=== PATIENT | female | born 1945 | race African-American/Black ===

== ENCOUNTER 2017-03-31 08:58 | Emergency (ER) | payer MEDICARE, OTHER ==
[~2017-03-31] VITALS: Ht 165.1 cm; Wt 81.2 kg
[2017-03-31 09:09] VITALS: BP 161/89
[2017-03-31] MEDS ORDERED: TETANUS-DIPTH-ACEL PERTUSSIS 0.5ML SYRG IM ONE (11:15)
== END 2017-03-31 11:32 | disposition home or self-care (01) ==
LOC: ER 09:08
DX: S61.213A Laceration without foreign body of left middle finger without damage to nail, initial encounter (principal); S61.215A Laceration without foreign body of left ring finger without damage to nail, initial encounter; Z88.0 Allergy status to penicillin; W22.09XA Striking against other stationary object, initial encounter; Y93.89 Activity, other specified; Y99.8 Other external cause status; Y92.89 Other specified places as the place of occurrence of the external cause
CPT/HCPCS: 12002; 90471; 90715

== ENCOUNTER 2021-09-29 13:12 | Inpatient (IN) | payer OTHER ==
[~2021-09-29] VITALS: Ht 167.6 cm; Wt 69.6 kg
[2021-09-29] MEDS ORDERED: SODIUM CHLORIDE 0.9% 1,000 ML IV ONE (14:30)
[2021-09-29 15:09] LABS: Basophils # (auto) 0.1 10 ^3/uL (0-0.2); Basophils % (auto) 1.2 % (0.0-2.0); Eosinophils # (auto) 0.2 10 ^3/uL (0-0.8); Eosinophils % (auto) 3.1 % (0.0-7.0); Hematocrit 36.8 % (36.0-46.0); Hemoglobin 12.2 g/dL (12.2-16.2); Lymphocytes # (auto) 0.8 10 ^3/uL (0.4-5.4); Lymphocytes % (auto) 15.6 % (10.0-50.0); Mean Corpuscular Hemoglobin 29.1 pg (28.0-32.0); Mean Corpuscular Hgb Conc. 33.2 g/dL (32.0-36.0); Mean Corpuscular Volume 87.5 fL (80.0-100.0); Monocytes # (auto) 0.5 10 ^3/uL (0-1.3); Monocytes % (auto) 10.9 % (0.0-12.0); Neutrophils # (auto) 3.4 10 ^3/uL (1.6-8.6); Neutrophils % (auto) 69.2 % (37.0-80.0); Nucleated Red Blood Cells % 0.1 %; Red Cell Distribution Width 13.7 % (11.8-14.3)
[2021-09-29 15:23] LABS: BUN/Creatinine Ratio 12.2; Calcium 8.5 mg/dL (8.5-10.1); Potassium 3.8 mmol/L (3.5-5.1)
[2021-09-29 15:27] LABS: Bilirubin, Total 0.5 mg/dL (0.2-1.0); Total Protein 6.4 g/dL (6.4-8.2)
[2021-09-29 16:48] LABS: Urine Bacteria FEW /hpf (None Seen); Urine Blood Negative /uL (Negative); Urine Specific Gravity 1.004 (1.001-1.035); Urine WBC 5 /hpf (0 - 5)
[2021-09-29] MEDS ORDERED: ONDANSETRON HCL 4 MG/2 ML VIAL IV ONE (18:00)
[2021-09-29] MEDS ORDERED: TEMAZEPAM 15 MG CAP PO PRN (21:15)
[2021-09-29] MEDS ORDERED: ONDANSETRON HCL 4 MG/2 ML VIAL IV PRN (21:15)
[2021-09-29] MEDS ORDERED: DEXTROSE (50%) 50ML SYRG IV PRN (21:15)
[2021-09-29] MEDS ORDERED: AZITHROMYCIN 500MG/ 250ML 250 ML IV ONE (21:15)
[2021-09-29] MEDS: SODIUM CHLORIDE 0.9% 1,000 ML IV SCH (21:39)
[2021-09-29] MEDS: ATORVASTATIN 20 MG TAB PO SCH (23:05)
[2021-09-29] MEDS: ASCORBIC ACID 500 MG TAB PO SCH (23:05)
[2021-09-30 00:09] VITALS: BP 149/81
[2021-09-30 05:00] VITALS: BP 130/82
[2021-09-30] MEDS: InsuLIN REG 1unit/0.01ml Soln (100units/ml) SC SCH ×5 (05:53→23:09)
[2021-09-30] MEDS: ACCU-CHEK COMFORT CURVE STRIP VI SCH ×4 (05:53→18:41)
[2021-09-30] MEDS ORDERED: METF-370 PO (06:04)
[2021-09-30] MEDS ORDERED: GLIP10TA9 PO (06:04)
[2021-09-30] MEDS ORDERED: GLUC1TES36 XX (06:04)
[2021-09-30] MEDS ORDERED: OXYB5TAB61 PO (06:04)
[2021-09-30] MEDS ORDERED: ATOR-47 PO (06:04)
[2021-09-30] MEDS ORDERED: ASPI81CH59 PO (06:04)
[2021-09-30] MEDS ORDERED: FLUT50SP NAS (06:04)
[2021-09-30] MEDS ORDERED: LISI-716 PO (06:04)
[2021-09-30] MEDS ORDERED: IBUP800T26 PO (06:04)
[2021-09-30] MEDS ORDERED: VALA1TAB34 PO (06:04)
[2021-09-30 06:37] LABS: Basophils # (auto) 0.1 10 ^3/uL (0-0.2); Basophils % (auto) 1.1 % (0.0-2.0); Eosinophils # (auto) 0.1 10 ^3/uL (0-0.8); Eosinophils % (auto) 3.1 % (0.0-7.0); Hematocrit 34.4 % (36.0-46.0); Hemoglobin 11.5 g/dL (12.2-16.2); Lymphocytes # (auto) 0.6 10 ^3/uL (0.4-5.4); Lymphocytes % (auto) 14.2 % (10.0-50.0); Mean Corpuscular Hemoglobin 29.1 pg (28.0-32.0); Mean Corpuscular Hgb Conc. 33.5 g/dL (32.0-36.0); Mean Corpuscular Volume 86.8 fL (80.0-100.0); Monocytes # (auto) 0.5 10 ^3/uL (0-1.3); Monocytes % (auto) 11.8 % (0.0-12.0); Neutrophils # (auto) 3.2 10 ^3/uL (1.6-8.6); Neutrophils % (auto) 69.8 % (37.0-80.0); Nucleated Red Blood Cells % 0.2 %; Red Blood Cells 3.96 10^6/uL (4.0-5.20); Red Cell Distribution Width 13.5 % (11.8-14.3); White Blood Cell 4.6 10^3/uL (4.4-10.8)
[2021-09-30 06:57] LABS: BUN/Creatinine Ratio 9.6; Calcium 8.1 mg/dL (8.5-10.1); Potassium 3.3 mmol/L (3.5-5.1)
[2021-09-30 07:00] LABS: Bilirubin, Total 0.7 mg/dL (0.2-1.0); Total Protein 5.4 g/dL (6.4-8.2)
[2021-09-30 08:45] VITALS: BP 156/89
[2021-09-30] MEDS ORDERED: ENOXAPARIN SOD 40 MG/0.4 ML SYRINGE SC SCH (10:00)
[2021-09-30] MEDS ORDERED: PANTOPRAZOLE 40 MG/10 ML VIAL INJ IV SCH (10:00)
[2021-09-30] MEDS ORDERED: AZITHROMYCIN 500MG/ 250ML 250 ML IV SCH (10:00)
[2021-09-30] MEDS ORDERED: ZINC SULFATE 220mg CAP or TAB PO SCH (10:00)
[2021-09-30] MEDS: SODIUM CHLORIDE 0.9% 1,000 ML IV SCH ×3 (10:35→23:00)
[2021-09-30] MEDS: ASCORBIC ACID 500 MG TAB PO SCH (11:15)
[2021-09-30] MEDS: ASPirin 81 mg TAB PO SCH (11:15)
[2021-09-30] MEDS: LISINOPRIL 10 MG TAB PO SCH (11:16)
[2021-09-30] MEDS ORDERED: cefTRIAXone 1GM/50ML D5W 50 ML IV ONE (11:30)
[2021-09-30] MEDS ORDERED: IOHEXOL 300 MG/ML 100ML BOTTLE IJ ONE (16:52)
[2021-09-30 17:00] VITALS: BP 144/79
[2021-09-30] MEDS: ALBUTEROL SULF 2.5 MG/0.5ML(0.5%) NEB SOLN NEB SCH (18:00)
[2021-09-30 19:00] VITALS: BP 144/79
[2021-09-30 22:25] VITALS: BP 127/67
[2021-09-30] MEDS: ATORVASTATIN 20 MG TAB PO SCH (22:43)
[2021-10-01] MEDS: ACCU-CHEK COMFORT CURVE STRIP VI SCH ×4 (05:01→18:48)
[2021-10-01] MEDS: InsuLIN REG 1unit/0.01ml Soln (100units/ml) SC SCH ×3 (05:01→18:49)
[2021-10-01 05:25] VITALS: BP 128/71
[2021-10-01 07:07] LABS: RPR Non Reactive (Non Reactive)
[2021-10-01 08:30] VITALS: BP 126/79
[2021-10-01] MEDS: ALBUTEROL SULF 2.5 MG/0.5ML(0.5%) NEB SOLN NEB SCH ×3 (08:51→18:27)
[2021-10-01] MEDS ORDERED: cefTRIAXone 1GM/50ML D5W 50 ML IV SCH (09:00)
[2021-10-01 09:25] LABS: Basophils # (auto) 0.1 10 ^3/uL (0-0.2); Basophils % (auto) 2.3 % (0.0-2.0); Eosinophils # (auto) 0.2 10 ^3/uL (0-0.8); Eosinophils % (auto) 3.7 % (0.0-7.0); Hematocrit 34.7 % (36.0-46.0); Hemoglobin 11.4 g/dL (12.2-16.2); Lymphocytes # (auto) 0.7 10 ^3/uL (0.4-5.4); Lymphocytes % (auto) 13.6 % (10.0-50.0); Mean Corpuscular Hemoglobin 28.8 pg (28.0-32.0); Mean Corpuscular Hgb Conc. 32.8 g/dL (32.0-36.0); Mean Corpuscular Volume 87.7 fL (80.0-100.0); Monocytes # (auto) 0.6 10 ^3/uL (0-1.3); Monocytes % (auto) 11.1 % (0.0-12.0); Neutrophils # (auto) 3.5 10 ^3/uL (1.6-8.6); Neutrophils % (auto) 69.3 % (37.0-80.0); Nucleated Red Blood Cells % 0.1 %; Red Blood Cells 3.96 10^6/uL (4.0-5.20); Red Cell Distribution Width 14.1 % (11.8-14.3)
[2021-10-01 09:39] LABS: BUN/Creatinine Ratio 8.2; Calcium 8.1 mg/dL (8.5-10.1); Potassium 3.2 mmol/L (3.5-5.1)
[2021-10-01 09:45] LABS: Cholesterol 56 mg/dL (< 200)
[2021-10-01 09:48] LABS: HDL Cholesterol 46 mg/dL (40-59); LDL Cholesterol 15 mg/dL (< 100); Triglycerides 56 mg/dL (< 150)
[2021-10-01 10:02] LABS: Folate (Folic Acid) 13.59 ng/mL (5.38-24)
[2021-10-01] MEDS: SODIUM CHLORIDE 0.9% 1,000 ML IV SCH ×2 (10:26→19:00)
[2021-10-01] MEDS: ASPirin 81 mg TAB PO SCH (10:26)
[2021-10-01] MEDS: DOXYCYCLINE 100 MG TAB/CAP PO SCH ×2 (10:26→21:48)
[2021-10-01] MEDS: LISINOPRIL 10 MG TAB PO SCH (10:27)
[2021-10-01 13:00] VITALS: BP 110/70
[2021-10-01] MEDS ORDERED: SODIUM CHLORIDE 0.9% 1,000 ML IV ONE (13:45)
[2021-10-01] MEDS ORDERED: POTASSIUM EFFERVESENT TAB 25 MEQ PO ONE (13:45)
[2021-10-01] MEDS ORDERED: ALBUAER3 IN (14:45)
[2021-10-01] MEDS ORDERED: DOX100T PO (14:45)
[2021-10-01] MEDS ORDERED: POLYETHYLENE GLYCOL 17 GM PWDR PO ONE (16:45)
[2021-10-01] MEDS ORDERED: IOHEXOL 350 MG/ML 100ML IJ ONE (16:58)
[2021-10-01 17:00] VITALS: BP 142/84
[2021-10-01] MEDS: ATORVASTATIN 20 MG TAB PO SCH (21:48)
[2021-10-01 22:30] VITALS: BP 135/74
[2021-10-02] MEDS: InsuLIN REG 1unit/0.01ml Soln (100units/ml) SC SCH ×5 (00:08→23:34)
[2021-10-02] MEDS: ACCU-CHEK COMFORT CURVE STRIP VI SCH ×5 (00:09→23:18)
[2021-10-02] MEDS: SODIUM CHLORIDE 0.9% 1,000 ML IV SCH ×2 (05:00→16:32)
[2021-10-02 05:22] VITALS: BP 137/70
[2021-10-02] MEDS: ALBUTEROL SULF 2.5 MG/0.5ML(0.5%) NEB SOLN NEB SCH ×3 (06:40→21:09)
[2021-10-02 09:00] VITALS: BP 139/81
[2021-10-02] MEDS: ASPirin 81 mg TAB PO SCH (09:33)
[2021-10-02] MEDS: LISINOPRIL 10 MG TAB PO SCH (09:34)
[2021-10-02] MEDS: DOXYCYCLINE 100 MG TAB/CAP PO SCH ×2 (09:34→21:41)
[2021-10-02] MEDS: CLOPIDOGREL BISULFATE 75 MG TAB PO SCH (09:34)
[2021-10-02 12:38] VITALS: BP 142/76
[2021-10-02] MEDS: ATORVASTATIN 20 MG TAB PO SCH (21:40)
[2021-10-02 22:18] VITALS: BP 157/87
[2021-10-03] MEDS: SODIUM CHLORIDE 0.9% 1,000 ML IV SCH ×3 (01:52→23:34)
[2021-10-03 05:00] VITALS: BP 141/73
[2021-10-03] MEDS: ALBUTEROL SULF 2.5 MG/0.5ML(0.5%) NEB SOLN NEB SCH ×4 (06:00→19:21)
[2021-10-03] MEDS: InsuLIN REG 1unit/0.01ml Soln (100units/ml) SC SCH ×4 (06:00→23:38)
[2021-10-03] MEDS: ACCU-CHEK COMFORT CURVE STRIP VI SCH ×4 (06:07→23:34)
[2021-10-03 09:00] VITALS: BP 172/92
[2021-10-03] MEDS: DOXYCYCLINE 100 MG TAB/CAP PO SCH ×2 (09:22→22:18)
[2021-10-03] MEDS: ASPirin 81 mg TAB PO SCH (09:22)
[2021-10-03] MEDS: CLOPIDOGREL BISULFATE 75 MG TAB PO SCH (09:22)
[2021-10-03] MEDS: LISINOPRIL 10 MG TAB PO SCH (09:23)
[2021-10-03 13:00] VITALS: BP 135/76
[2021-10-03 17:00] VITALS: BP 152/73
[2021-10-03 22:00] VITALS: BP 147/81
[2021-10-03] MEDS: ATORVASTATIN 20 MG TAB PO SCH (22:18)
[2021-10-04 01:12] VITALS: BP 147/81
[2021-10-04 05:00] VITALS: BP 152/78
[2021-10-04] MEDS: ACCU-CHEK COMFORT CURVE STRIP VI SCH ×3 (05:57→17:15)
[2021-10-04] MEDS: InsuLIN REG 1unit/0.01ml Soln (100units/ml) SC SCH ×3 (05:58→17:15)
[2021-10-04] MEDS: ALBUTEROL SULF 2.5 MG/0.5ML(0.5%) NEB SOLN NEB SCH ×3 (06:04→19:08)
[2021-10-04] MEDS: LISINOPRIL 10 MG TAB PO SCH (08:38)
[2021-10-04] MEDS: CLOPIDOGREL BISULFATE 75 MG TAB PO SCH (08:38)
[2021-10-04] MEDS: DOXYCYCLINE 100 MG TAB/CAP PO SCH ×2 (08:38→22:25)
[2021-10-04] MEDS: ASPirin 81 mg TAB PO SCH (08:38)
[2021-10-04 09:00] VITALS: BP 155/79
[2021-10-04] MEDS: SODIUM CHLORIDE 0.9% 1,000 ML IV SCH ×2 (10:35→17:15)
[2021-10-04 13:00] VITALS: BP 149/91
[2021-10-04 17:00] VITALS: BP 147/92
[2021-10-04 22:00] VITALS: BP 156/94
[2021-10-04] MEDS: ATORVASTATIN 20 MG TAB PO SCH (22:25)
[2021-10-05] MEDS: SODIUM CHLORIDE 0.9% 1,000 ML IV SCH ×2 (03:00→13:41)
[2021-10-05] MEDS: ACCU-CHEK COMFORT CURVE STRIP VI SCH ×3 (06:00→12:00)
[2021-10-05] MEDS: InsuLIN REG 1unit/0.01ml Soln (100units/ml) SC SCH ×3 (06:00→12:00)
[2021-10-05] MEDS: ALBUTEROL SULF 2.5 MG/0.5ML(0.5%) NEB SOLN NEB SCH ×2 (07:11→12:00)
[2021-10-05] MEDS: ASPirin 81 mg TAB PO SCH (08:57)
[2021-10-05] MEDS: LISINOPRIL 10 MG TAB PO SCH (08:58)
[2021-10-05] MEDS: CLOPIDOGREL BISULFATE 75 MG TAB PO SCH (08:58)
[2021-10-05] MEDS: DOXYCYCLINE 100 MG TAB/CAP PO SCH (08:58)
[2021-10-05 09:00] VITALS: BP 126/71
[2021-10-05] MEDS ORDERED: fentaNYL CITRATE 100 MCG/2 ML VL IV ONE (09:15)
[2021-10-05] MEDS ORDERED: MIDAZOLAM HCL 2MG/2ML 2ml VIAL (1mg/ml) IV ONE (09:15)
[2021-10-05] MEDS ORDERED: LIDOCAINE VISCOUS 2% 15ML UD MT ONE (09:15)
[2021-10-05 13:00] VITALS: BP 142/70
[2021-10-05 17:00] VITALS: BP 134/71
[2021-10-05 17:29] VITALS: BP 126/71
== END 2021-10-05 17:45 | disposition home health service (06) | DRG 64 ==
LOC: EDBD 13:12 → ER 13:12 → OVERFLOW 21:02 → EAST 23:11 → WEST WING 09-30 11:58
PROVIDERS: ADMIT Nurse Practitioner; ATTEND Internal Medicine
PROC: B246ZZ4 Ultrasonography of Right and Left Heart, Transesophageal (ICD-10-PCS; principal; 2021-10-05)
DX: I63.9 Cerebral infarction, unspecified (principal); G92.8 Other toxic encephalopathy; K85.90 Acute pancreatitis without necrosis or infection, unspecified; E43 Unspecified severe protein-calorie malnutrition; J18.9 Pneumonia, unspecified organism; E11.42 Type 2 diabetes mellitus with diabetic polyneuropathy; J84.10 Pulmonary fibrosis, unspecified; I10 Essential (primary) hypertension; E87.6 Hypokalemia; Z20.822 Contact with and (suspected) exposure to COVID-19; M19.90 Unspecified osteoarthritis, unspecified site; E78.5 Hyperlipidemia, unspecified; Z79.82 Long term (current) use of aspirin; Z79.899 Other long term (current) drug therapy; Z82.49 Family history of ischemic heart disease and other diseases of the circulatory system; Z83.3 Family history of diabetes mellitus; Z86.16 Personal history of COVID-19; Z87.01 Personal history of pneumonia (recurrent); Z90.710 Acquired absence of both cervix and uterus; Z88.0 Allergy status to penicillin; Z68.24 Body mass index [BMI] 24.0-24.9, adult
CPT/HCPCS: 36415; 70450; 70496; 70498; 70551; 71045; 74177; 76705; 80048; 80053; 80061; 81001; 82140; 82607; 82728; 82746; 82962; 83605; 83690; 83735; 83880; 84443; 84484; 85025; 86592; 87426; 93005; 93306; 93312; 94640; 95819; 96361; 96365; 96375; 99152; C9113; G0378; J0696; J1815; J2250; J2405